=== PATIENT | female | born 1950 | race Caucasian/White ===

== ENCOUNTER 2016-12-26 13:27 | Observation (INO) | payer MEDICARE ==
[~2016-12-26] VITALS: Ht 160 cm; Wt 86.4 kg
[~2016-12-26 13:27] MED LIST: COMBIVENT INH14.7 GM IH; DRAMAMINE50 M1 PO; FLOMAX 0.40.4 MG/CAP PO; LEVAQUIN 750MG750 M1 PO; METHADONE H10 MG/TAB PO; MORPHINE 1515 MG/TAB PO; MS CONTIN 330 MG/TAB PO; NICODERM C14 MG/PATC TOP; PERCOCET 325 MG1 TA2 PO; PHENERGAN 25 TA25 MG PO; PREDNISONE20 MG PO; PRIL40 PO; RT ADVAIR 228 DISKUS IH; RT SPIRIVA18 MCG IH; XANAX 0.5MG0.5 MG PO; XANAX 1MG1 MG PO
[2016-12-26] MEDS ORDERED: INCRUSE EL62.5 MCG/A IH (13:54)
[2016-12-26] MEDS ORDERED: DITROPAN 5MG TAB5 MG PO (13:56)
[2016-12-26] MEDS ORDERED: PRIL40 PO (13:57)
[2016-12-26] MEDS ORDERED: VENTOLIN0.09 MG IH (13:57)
[2016-12-26] MEDS ORDERED: NEURONTIN600 MG/TAB PO (13:58)
[2016-12-26] MEDS ORDERED: VITAMIN A10k (14:04)
[2016-12-26] MEDS ORDERED: B COMPLEX & B121 TAB PO (14:05)
[2016-12-26 14:32] LABS: BASO # 0.1 (0.0-0.2); BASO % 0.7 % (0.0-2.0); EOS # 0.3 (0.0-0.7); GRAN # 6.1 (1.4-6.5); GRAN % 66.9 % (42.2-75.2); HEMATOCRIT 38.7 % (37.0-47.0); HEMOGLOBIN 12.8 g/dl (12.5-16.0); LYMPH # 2.1 (1.2-3.4); LYMPH % 23.4 % (20.0-51.0); MEAN CELL VOLUME 90 fl (80.0-100.0); MEAN CORPUSCULAR HEMOGLOBIN 30 pg (27.0-31.0); MEAN CORPUSCULAR HGB CONC 33 g/dl (33.0-37.0); MEAN PLATELET VOLUME 10.5 fl (7.4-10.4); MONO # 0.5 (0.1-0.6); PLATELET COUNT 292 K/mm3 (130-400); RED BLOOD COUNT 4.31 M/mm3 (4.10-5.30); REDCELL DISTRIBUTION WIDTH-CV 12.5 % (11.5-14.5); WHITE BLOOD COUNT 9.1 K/mm3 (4.8-10.8)
[2016-12-26 15:09] LABS: ADJUSTED CALCIUM 9.6 mg/dL (8.4-10.2); ALANINE AMINOTRANSFERASE 26 U/L (9-52); ALBUMIN 3.4 gm/dL (3.5-5.0); ALKALINE PHOSPHATASE 91 U/L (50-136); ANION GAP 11 mmol/L (7-16); BILIRUBIN,TOTAL 1.1 mg/dL (0.0-1.0); BLOOD UREA NITROGEN 11 mg/dL (7-17); CALCIUM 9.1 mg/dL (8.4-10.2); CARBON DIOXIDE 29 mmol/L (22-30); CHLORIDE 100 mmol/L (98-107); CREATININE, serum 0.65 mg/dL (0.52-1.25); GLUCOSE 142 mg/dL (74-106); SODIUM 140 mmol/L (137-145); TOTAL PROTEIN 7.1 gm/dL (6.4-8.2)
[2016-12-26 15:22] LABS: B-TYPE NATRIURETIC PEPTIDE 336 pg/mL (0-125)
[2016-12-26 15:33] LABS: TROPONIN-I < 0.012 ng/mL (0.000-0.034)
[2016-12-26] MEDS ORDERED: VITAMIN D1000 IU PO (17:34)
[2016-12-26 19:15] VITALS: BP 155/75; PULSE 89; TEMP 98.5
[2016-12-26 22:38] VITALS: BP 154/90; PULSE 84; TEMP 98.2
[2016-12-27 03:53] VITALS: BP 107/89; PULSE 71; TEMP 98.2
[2016-12-27 07:25] VITALS: BP 146/76; PULSE 75; TEMP 98.3
[2016-12-27 11:07] VITALS: BP 132/58; PULSE 113; TEMP 99
[2016-12-27 11:53] VITALS: BP 108/50; PULSE 71; TEMP 97.9
[2016-12-27 14:59] VITALS: BP 121/76; PULSE 73
[2016-12-27] MEDS ORDERED: NITROSTAT0.4 MG/TAB SL (15:53)
[2016-12-27] MEDS ORDERED: TOPROL XL 50MG50 MG PO (15:53)
[2016-12-27] MEDS ORDERED: ASPI325T6 PO (15:53)
[2016-12-27] MEDS ORDERED: IMDUR 30MG30 MG/TAB PO (16:06)
[2016-12-27] MEDS ORDERED: ZOFRAN 4MG T4 MG/TAB PO (16:49)
== END 2016-12-27 18:00 | disposition home or self-care (01) ==
LOC: COL.ER 13:27 → MEDICAL 15:30
PROVIDERS: Emergency Medicine
DX: R07.89 Other chest pain (principal); E55.9 Vitamin D deficiency, unspecified; J44.9 Chronic obstructive pulmonary disease, unspecified; Z99.81 Dependence on supplemental oxygen; G89.29 Other chronic pain; M54.9 Dorsalgia, unspecified; B18.2 Chronic viral hepatitis C; F41.9 Anxiety disorder, unspecified; E66.01 Morbid (severe) obesity due to excess calories; K21.9 Gastro-esophageal reflux disease without esophagitis; K44.9 Diaphragmatic hernia without obstruction or gangrene; Z87.891 Personal history of nicotine dependence; M81.0 Age-related osteoporosis without current pathological fracture; I10 Essential (primary) hypertension
CPT/HCPCS: G0378; J2405; J7030

== ENCOUNTER 2017-02-10 08:13 | Inpatient (IN) | payer MEDICARE ==
[~2017-02-10] VITALS: Ht 160 cm; Wt 100.3 kg
[~2017-02-10 08:13] MED LIST changes: +ASPI325T6 PO; +B COMPLEX & B121 TAB PO; +DITROPAN 5MG TAB5 MG PO; +IMDUR 30MG30 MG/TAB PO; +INCRUSE EL62.5 MCG/A IH; +NEURONTIN600 MG/TAB PO; +NITROSTAT0.4 MG/TAB SL; +TOPROL XL 50MG50 MG PO; +VENTOLIN0.09 MG IH; +VITAMIN A10k; +VITAMIN D1000 IU PO; +ZOFRAN 4MG T4 MG/TAB PO
[2017-02-11 09:29] VITALS: BP 116/58; PULSE 65; TEMP 98.2
[2017-02-11 09:44] LABS: BASO # 0.1 (0.0-0.2); BASO % 0.9 % (0.0-2.0); EOS # 0.2 (0.0-0.7); EOS % 2.9 % (0-4.0); GRAN # 4.8 (1.4-6.5); GRAN % 59.9 % (42.2-75.2); LYMPH # 2.2 (1.2-3.4); MEAN CELL VOLUME 93 fl (80.0-100.0); MEAN CORPUSCULAR HGB CONC 33 g/dl (33.0-37.0); MEAN PLATELET VOLUME 10.5 fl (7.4-10.4); MONO # 0.6 (0.1-0.6); MONO % 7.4 % (1.7-9.3); PLATELET COUNT 209 K/mm3 (130-400); RED BLOOD COUNT 3.88 M/mm3 (4.10-5.30); REDCELL DISTRIBUTION WIDTH-CV 13.3 % (11.5-14.5)
[2017-02-11 09:48] LABS: ADJUSTED CALCIUM 9.1 mg/dL (8.4-10.2); ALBUMIN 3.6 gm/dL (3.5-5.0); BILIRUBIN,TOTAL 0.9 mg/dL (0.0-1.0); CALCIUM 8.8 mg/dL (8.4-10.2); CREATININE, serum 0.87 mg/dL (0.52-1.25); HEMOGLOBIN 11.7 g/dl (12.5-16.0); MAGNESIUM 1.6 mg/dL (1.6-2.3); MEAN CORPUSCULAR HEMOGLOBIN 30 pg (27.0-31.0); POTASSIUM 4.3 mmol/L (3.4-5.0); TOTAL PROTEIN 7.1 gm/dL (6.4-8.2)
[2017-02-11 09:50] LABS: INR 1.3 (0.8-3.0); PROTHROMBIN TIME 14.2 SECONDS (9.7-12.8)
[2017-02-11 11:54] VITALS: BP 126/54; PULSE 81; TEMP 97.6
[2017-02-11 15:19] VITALS: BP 122/70; PULSE 56; TEMP 98
[2017-02-11 19:31] VITALS: BP 133/67; PULSE 55; TEMP 98.3
[2017-02-11 22:46] VITALS: BP 124/66; PULSE 87; TEMP 98.6
[2017-02-12 03:40] VITALS: BP 98/54; PULSE 50; TEMP 98.3
[2017-02-12 07:58] VITALS: BP 125/73; PULSE 53; TEMP 98
[2017-02-12 12:24] VITALS: BP 128/77; PULSE 63; TEMP 97.3
[2017-02-12 15:53] VITALS: BP 145/74; PULSE 59; TEMP 98.5
[2017-02-12 19:42] VITALS: BP 152/68; PULSE 62; TEMP 98.7
[2017-02-12 23:09] VITALS: BP 131/50; PULSE 63; TEMP 98.4
[2017-02-13 03:51] VITALS: BP 125/58; PULSE 58; TEMP 98.6
[2017-02-13 07:53] VITALS: BP 145/57; PULSE 56; TEMP 97.5
[2017-02-13 11:50] VITALS: BP 113/58; PULSE 59; TEMP 98.4
[2017-02-13] MEDS ORDERED: XARELTO20 MG PO (15:25)
[2017-02-13] MEDS ORDERED: BETAPACE 80MG80 MG PO (15:26)
[2017-02-13 15:49] VITALS: BP 129/75; PULSE 62; TEMP 98.1
== END 2017-02-13 18:10 | disposition home or self-care (01) | DRG 310 ==
LOC: MEDICAL 02-11 08:11
PROVIDERS: Internal Medicine Cardiovascular Disease
DX: I48.0 Paroxysmal atrial fibrillation (principal); J44.9 Chronic obstructive pulmonary disease, unspecified; I27.2 Other secondary pulmonary hypertension; Z99.81 Dependence on supplemental oxygen

== ENCOUNTER 2017-03-13 06:48 | Emergency (ER) | payer MEDICARE, MEDICAID ==
[~2017-03-13] VITALS: Ht 160 cm; Wt 90.9 kg
[~2017-03-13 06:48] MED LIST changes: +BETAPACE 80MG80 MG PO; +XARELTO20 MG PO
[2017-03-13 06:51] VITALS: TEMP 97.8
[2017-03-13 07:27] LABS: BASO # 0.1 (0.0-0.2); BASO % 0.7 % (0.0-2.0); EOS # 0.3 (0.0-0.7); EOS % 3.7 % (0-4.0); GRAN # 5.2 (1.4-6.5); GRAN % 58.5 % (42.2-75.2); HEMATOCRIT 42.9 % (37.0-47.0); HEMOGLOBIN 13.8 g/dl (12.5-16.0); LYMPH # 2.7 (1.2-3.4); LYMPH % 29.9 % (20.0-51.0); MEAN CELL VOLUME 94 fl (80.0-100.0); MEAN CORPUSCULAR HEMOGLOBIN 30 pg (27.0-31.0); MEAN CORPUSCULAR HGB CONC 32 g/dl (33.0-37.0); MEAN PLATELET VOLUME 10.6 fl (7.4-10.4); MONO # 0.6 (0.1-0.6); MONO % 6.3 % (1.7-9.3); PLATELET COUNT 229 K/mm3 (130-400); RED BLOOD COUNT 4.58 M/mm3 (4.10-5.30); REDCELL DISTRIBUTION WIDTH-CV 12.8 % (11.5-14.5); WHITE BLOOD COUNT 8.9 K/mm3 (4.8-10.8)
[2017-03-13 07:28] LABS: INR 1.2 (0.8-3.0); PROTHROMBIN TIME 13.4 SECONDS (9.7-12.8)
[2017-03-13 07:31] LABS: PARTIAL THROMBOPLASTIN TIME 36.5 SECONDS (26.0-37.0)
[2017-03-13 07:33] LABS: PH 7 (5-8); SQUAMOUS EPITHELIAL 0-2 /hpf; URINE APPEARANCE Hazy; URINE BACTERIA None Seen /hpf; URINE BILIRUBIN Negative (NEGATIVE); URINE BLOOD 3+ (NEGATIVE); URINE COLOR Yellow; URINE GLUCOSE Negative (NEGATIVE); URINE KETONE Negative (NEGATIVE); URINE RBC >50 /hpf; URINE UROBILINOGEN >=4.0 mg/dL (NEGATIVE)
[2017-03-13 07:34] LABS: ADJUSTED CALCIUM 9.3 mg/dL (8.4-10.2); BILIRUBIN,TOTAL 1.2 mg/dL (0.0-1.0); CALCIUM 9.3 mg/dL (8.4-10.2); CREATININE, serum 0.88 mg/dL (0.52-1.25); MAGNESIUM 1.8 mg/dL (1.6-2.3); PHOSPHOROUS 3.8 mg/dL (2.5-4.5); POTASSIUM 4.5 mmol/L (3.4-5.0)
[2017-03-13] MEDS ORDERED: NORCO 325 MG-51 TAB PO (09:44)
[2017-03-13] MEDS ORDERED: MACROBID 1100 MG/CAP PO (09:52)
[2017-03-13 10:06] VITALS: BP 156/60; PULSE 70
== END 2017-03-13 10:06 | disposition home or self-care (01) ==
LOC: COL.ER 06:48
PROVIDERS: Emergency Medicine
DX: M54.89 Other dorsalgia (principal); R31.21 Asymptomatic microscopic hematuria; I48.0 Paroxysmal atrial fibrillation; Z79.01 Long term (current) use of anticoagulants; K80.20 Calculus of gallbladder without cholecystitis without obstruction; Z87.442 Personal history of urinary calculi; J44.9 Chronic obstructive pulmonary disease, unspecified
CPT/HCPCS: J3010; J7030

== ENCOUNTER 2018-02-02 08:20 | Outpatient (CLI) | payer MEDICARE, MEDICAID ==
[~2018-02-02] VITALS: Ht 160 cm; Wt 90.7 kg
[~2018-02-02 08:20] MED LIST changes: +MACROBID 1100 MG/CAP PO; +NORCO 325 MG-51 TAB PO
[2018-02-02] MEDS ORDERED: MYRBETR50MG PO (08:40)
[2018-02-02] MEDS ORDERED: NORVASC 5MG5 MG/TAB PO (08:42)
[2018-02-02 08:49] VITALS: BP 123/68; PULSE 63; TEMP 97.1
== END 2018-02-02 09:35 | disposition home or self-care (01) ==
LOC: EUO 08:20
DX: M81.0 Age-related osteoporosis without current pathological fracture (principal)
CPT/HCPCS: J3489